=== PATIENT | male | born 1955 | race Caucasian/White ===

== ENCOUNTER 2019-12-03 19:43 | Emergency (ER) | payer MEDICARE, SELFPAY ==
[2019-12-03] VITALS (36 sets, daily range): BP systolic 141–175; BP diastolic 83–94; PULSE 92–116; RESP 1–27; TEMP 36.7; O2SAT 92–97; BMI 37.5
--- NOTE | 2019-12-03 19:47 | XR_ITS ---
WS: [id number] CHEST XRAY TECHNIQUE: Portable chest. CLINICAL INFORMATION: sob COMPARISON: October 03, 2019 FINDINGS: Heart: Cardiomegaly. Sternotomy. Aortic calcification. Lungs: Chronic emphysematous changes with interstitial thickening unchanged in appearance. Patchy inf iltrate in right lower lobe appears improved since October 03, 2019. No new infiltrates. Bones: Normal visualized bony structures. XR/XR chest 1V portable [id number] IMPRESSION: 1. No new pulmonary infiltrates. 2. Sternotomy with cardiomegaly. 3. Chronic emphysematous changes interstitial thickening. 4. Previous described right lower lobe pneumonia appears improved.
--- NOTE | 2019-12-03 19:48 | ECG_ITS ---
Measurements Intervals [place] Rate: 107 P: 66 KS: 191 QRS: 74 QRSD: 110 T: 178 QT: 353 QTc: [address] & T-WAVE ABNORMALITY Compared to ECG 10/03/2019 06:40:25 Sinus rhythm no longer present First degree AV block no longer present Intraventricular conduction delay no longer present T-wave abnormality still present Electronically Signed On 12-04-2019 20:11:31 GLOBAL SUPPLY CHAIN VICE PRESIDENT by Marifer Molina M.D. [id number] f
--- NOTE | 2019-12-03 19:49 | ED_ITS ---
Entered by Argelia Emerson, acting as scribe for Alfred Chauhan DO HPI - SOB/Dyspnea General: Chief Complaint: Shortness of Breath/Dyspnea Stated Complaint: cough/fluid bulid up sob Time Seen by Provider: 12/03/19 19:48 Source: patient and family Mode of arrival: ambulatory History of Present Illness: HPI Narrative: 64 y/o male presents to the ED with complaint of fluid build up in his chest. Pt states he had open heart sx in September. He is on liquid intake restriction and thinks he drank too much water. Pt reports increased swelling in his left leg over the past few days. Pt is a po or historian and keeps repeating, it feels the same as before . MD elicited complaint: shortness of breath and cough Onset (ago): day(s) Timing: progressively worsening Severity: moderate Exacerbating factors: coughing Associated symptoms: Deny abdominal pain, chest pain, dizziness, extremity pain, fever(s), nausea, orthopnea, palpitations, polydipsia, polyuria, syncope or vomiting Review of Systems Const: Denies: fever, chills, body aches, fatigue, malaise or night sweats Eyes: Denies: change in vision or blurry vision ENMT: Denies: throat pain, oral sores/lesions, dental pain, nasal discharge or nasal congestion Card: Reports: swelling of feet/ankles (left ) and shortness of breath on exertion; Denies: chest pain, palpitations, irregular heart rhythm, syncope, shortness of breath when lying down or leg pain with exertion Resp: Reports: shortness of breath and non-productive cough; Denies: productive cough or wheezing GI: Denies: abdominal pain, nausea, vomiting, vomiting blood, coffee grounds in vomit, difficulty swallowing, heartburn/indigestion, diarrhea, constipation, cramping, blood in stool or black tarry stool : Denies: flank pain, difficulty urinating, painful urination, urinary frequency, urinary urgency, urinary incontinence or blood in urine Musc: Denies: neck pain, back pain, extremity pain, extremity swelling, joint pain or joint swelling Skin/Breast: Denies: rash, itching or redness Neuro: Denies: headache, numbness in extremities, weakness in extremities, changes in sensation, lack of coordination, difficulty walking, frequent falls, dizziness, vertigo or confusion Psych: Denies: anxiety, depression, loss of interest, visual hallucinations, auditory hallucinations, suicidal ideation or homicidal ideation Endo: Denies: excessive urination, excessive thirst, tired all the time or cold intolerance Anirudh/Lymph: Denies: easy bruising, easy bleeding, petechiae, enlarged lymph nodes or tender lymph nodes PFSH ED PFSH: Statuses (acute, chronic, etc) shown below reflect problem list status as previously entered and may not be historically accurate Social History Smoking and tobacco status: former smoker Physical Exam Const: COMMON NORMALS: oriented x3 and alert GENERAL APPEARANCE: cooperative, comfortable and well developed NUTRITIONAL APPEARANCE: obese ORIENTATION/CONSCIOUSNESS: Yes awake, Yes oriented to person and Yes oriented to place HENMT: COMMON NORMALS: normocephalic, head/scalp atraumatic, external ears normal, EAC's normal, TM's normal bilaterally, external nose normal, moist oral mucous membranes and oropharynx normal HEAD & SCALP: normocephalic and atraumatic NOSE: external nose normal EXTERNAL EAR: Yes external ears normal EXTERNAL AUDITORY CANAL: EAC's normal TYMPANIC MEMBRANE: TM's normal bilaterally MOUTH: oral and palatal mucosa normal, lip normal and tongue normal THROAT: posterior oropharynx normal and tonsils normal Eye: COMMON NORMALS: PERRL, EOMs intact bilaterally, conjunctivae normal and no scleral icterus CONJUNCTIVA: Yes conjunctivae normal PUPIL: Yes PERRL Neck/C-Spine: COMMON NORMALS: full ROM, no lymphadenopathy, supple, no meningeal signs and thyroid normal THYROID: thyroid normal and asymmetrical Lymph: LYMPHATIC: no lymphadenopathy noted Resp: COMMON NORMALS: normal respiratory effort, no retractions, no use of accessory muscles and clear to auscultation bilaterally AUSCULTATION: clear to auscultation bilaterally Cardio: COMMON NORMALS: regular rate and regular rhythm RATE: regular rate RHYTHM: regular rhythm HEART SOUNDS: no murmurs GI: COMMON NORMALS: normal to inspection, nondistended, normoactive bowel sounds, soft to palpation and no hepatosplenomegaly AUSCULTATION: Yes normoactive bowel sounds PALPATION: Yes soft and Yes no hepatosplenomegaly : COMMON NORMALS: Yes no CVA tenderness BLADDER/KIDNEY EXAM: Yes no CVA tenderness Back/Pelvis: COMMON NORMALS: no CVA tenderness LUMBAR SPINE/LOWER BACK: Yes normal to inspection Extremity: NARRATIVE EXTREMITY EXAM: LLE swelling Neuro: COMMON NORMALS: oriented x3 SENSORIUM/ORIENTATION: Yes alert, Yes oriented to person and Yes oriented to place MENINGEAL SIGNS: Yes no meningeal signs Psych: COMMON NORMALS: speech normal SPEECH: Yes normal speech Skin: COMMON NORMALS: no rashes or lesions noted and skin turgor normal GENERAL SKIN EXAM: no rashes or lesions noted and turgor normal Course ED course: Initially patient has to be transferred we called [facility] his preference and they told us they had no beds available and were not taking any ER to ER transfers. Informed patient of this he is very adamant about being transferred. We offered him admission here for rule out and further evaluation by cardiology refuses. Called back to [facility] talk to the transfer service and the hospitalist eventually we were able to figure out a way to get him transferred to [facility] discussed with the patient. At this time he is pain-free although he does have a significant elevation in his delta troponin. Vital Signs: Vital signs: Vital Signs Temperature 98.0 F 12/03/19 19:54 Pulse Rate 82 12/04/19 02:58 Respiratory Rate 16 12/04/19 02:58 Blood Pressure 121/79 12/04/19 02:58 Pulse Oximetry 96 12/04/19 02:58 MDM - SOB/Dyspnea Lab Data: Labs: Lab Results 12/03/19 12/03/19 12/03/19 Range/Units 20:10 20:10 20:10 WBC 10.0 (4.0-10.0) 10^3/ uL RBC 3.83 L (4.1-5.3) 10^6/u L Hgb 11.2 L (11.7-16.6) g/dL Hct 35.4 L (42.0-52.0) % MCV 92.4 (80-94) fL MCH 29.2 (28.0-34.0) pg MCHC 31.6 (30.0-36.0) g/dL RDW 14.7 (12.1-15.1) % Plt Count 340 (130-400) 10^3/c mm MPV 9.7 (7.4-10.4) fL Neut % (Auto) 74.4 % Lymph % (Auto) 16.6 % Mccracken % (Auto) 8.0 % Eos % (Auto) 0.3 % Baso % (Auto) 0.3 % Neut # (Auto) 7.4 (1.8-7.7) 10^3/u L Lymph # (Auto) 1.7 (0.8-4.8) 10^3/u L Mccracken # (Auto) 0.8 (0.2-0.9) 10^3/u L Eos # (Auto) 0.0 (0.0-0.8) 10^3/u L Baso # (Auto) 0.0 (0.0-0.1) 10^3/u L Nucleated RBC % (a uto) 0 % Nucleated RBCs # 0.0 /100WBC Sodium 134 L (136-145) mmol/L Potassium 4.2 (3.5-5.1) mmol/L Chloride 96 L (98-107) mmol/L Carbon Dioxide 26 (22-29) mmol/L Anion Gap 16.2 (5-19) BUN 51 H (8-23) mg/dL Creatinine 2.8 H (0.7-1.2) mg/dL GFR Calculation 22.9 L (90-130) mL/min Glucose 331 H (74-106) mg/dL Calcium 9.4 (8.5-10.5) mg/dL Total Bilirubin 0.3 (0.15-1.2) mg/dL AST 16 (0-40) U/L ALT 9 (0-41) U/L Alkaline Phosphata se 106 (40-130) IU/L Troponin I 6 Hour (0-15) ng/L Troponin I Hi Sens Del (0-12) ng/L Troponin T Baselin e 98 H (0-15) ng/mL Troponin T 120 Min grand traverse (0-15) ng/mL Delta Troponin T (0-10) ABS# NT-Pro-B Natriuret Pep 5569 H (0-125) pg/mL Total Protein 7.8 (6.6-8.7) g/dL Albumin 3.9 (3.5-5.2) g/dL Globulin 3.9 (1.3-4.6) g/dL Influenza Type A A g (Negative) POC Influenza B Ag (Negative) 12/03/19 12/03/19 12/04/19 Range/Units 20:23 22:16 02:00 WBC (4.0-10.0) 10^3/ uL RBC (4.1-5.3) 10^6/u L Hgb (11.7-16.6) g/dL Hct (42.0-52.0) % MCV (80-94) fL MCH (28.0-34.0) pg MCHC (30.0-36.0) g/dL RDW (12.1-15.1) % Plt Count (130-400) 10^3/c mm MPV (7.4-10.4) fL Neut % (Auto) % Lymph % (Auto) % Mccracken % (Auto) % Eos % (Auto) % Baso % (Auto) % Neut # (Auto) (1.8-7.7) 10^3/u L Lymph # (Auto) (0.8-4.8) 10^3/u L Mccracken # (Auto) (0.2-0.9) 10^3/u L Eos # (Auto) (0.0-0.8) 10^3/u L Baso # (Auto) (0.0-0.1) 10^3/u L Nucleated RBC % (a uto) % Nucleated RBCs # /100WBC Sodium (136-145) mmol/L Potassium (3.5-5.1) mmol/L Chloride (98-107) mmol/L Carbon Dioxide (22-29) mmol/L Anion Gap (5-19) BUN (8-23) mg/dL Creatinine (0.7-1.2) mg/dL GFR Calculation (90-130) mL/min Glucose (74-106) mg/dL Calcium (8.5-10.5) mg/dL Total Bilirubin (0.15-1.2) mg/dL AST (0-40) U/L ALT (0-41) U/L Alkaline Phosphata se (40-130) IU/L Troponin I 6 Hour 280.6 H (0-15) ng/L Troponin I Hi Sens Del 182.6 H* (0-12) ng/L Troponin T Baselin e (0-15) ng/mL Troponin T 120 Min grand traverse 153.10 H (0-15) ng/mL Delta Troponin T 55.10 H* (0-10) ABS# NT-Pro-B Natriuret Pep (0-125) pg/mL Total Protein (6.6-8.7) g/dL Albumin (3.5-5.2) g/dL Globulin (1.3-4.6) g/dL Influenza Type A A g Negative (Negative) POC Influenza B Ag Negative (Negative) Discharge Plan Discharge Patient Disposition: Xfer Other Clinical Impression: Non-ST elevation AK (NSTEMI), Congestive heart failure, CAD (coronary artery disease) Referrals: Nida Buck MD [Primary Care Provider] - Interventions: ED Discharge Assessment Last Done: 12/04/19 02:58 Discharge Date/Time: 12/04/19 03:15 Coding Level of Care Code ED Proof Tester for Chg Fwd Exam Problem Focused The documentation recorded by the Ki mackay Ashley, accurately reflects the service I personally performed and the decisions made by Tien oneill Curtis L, DO Dec 03, 2019 19:43
--- NOTE | 2019-12-03 19:54 | ECG_ITS ---
Measurements Intervals [place] Rate: 94 P: 83 [place]: 209 QRS: 39 QRSD: 106 T: 130 QT: 373 QTc: [address] DEVIATION AND MODERATE T-WAVE ABNORMALITY, CONSIDER LATERAL ISCHEMIA [-0.1+ mV T WAVE IN I/aVL/V5/V6] Compared to ECG 10/03/2019 06:40:25 Possible ischemia now present First degree AV block no longer present Intraventricular conduction delay no longer present T-wave abnormality still present Electronically Signed On 12-04-2019 20:12:07 ASSOCIATE PROFESSOR OF PATHOLOGY by Marifer Molina M.D. [id number]
[2019-12-03 20:28] LABS: Basophils % 0.3 %; Eosinophils % 0.3 %; Hematocrit 35.4 % (42.0-52.0); Hemoglobin 11.2 g/dL (11.7-16.6); Lymphocytes # 1.7 10^3/uL (0.8-4.8); Lymphocytes % 16.6 %; Mean Corpuscular HGB Conc 31.6 g/dL (30.0-36.0); Mean Corpuscular Hemoglobin 29.2 pg (28.0-34.0); Mean Corpuscular Volume 92.4 fL (80-94); Mean Platelet Volume 9.7 fL (7.4-10.4); Monocytes # 0.8 10^3/uL (0.2-0.9); Neutrophils # 7.4 10^3/uL (1.8-7.7); Neutrophils % 74.4 %; Nucleated Red Blood Cells % 0 %; Platelet Count 340 10^3/cmm (130-400); Red Blood Count 3.83 10^6/uL (4.1-5.3); Red Cell Distribution Width 14.7 % (12.1-15.1)
[2019-12-03 20:52] LABS: Troponin(5th) Baseline 98 ng/mL (0-15)
[2019-12-03 21:00] LABS: Alanine Aminotransferase 9 U/L (0-41); Albumin Level 3.9 g/dL (3.5-5.2); Alkaline Phosphatase 106 IU/L (40-130); Anion Gap 16.2 (5-19); Aspartate Amino Transferase 16 U/L (0-40); Blood Urea Nitrogen 51 mg/dL (8-23); Calcium 9.4 mg/dL (8.5-10.5); Carbon Dioxide 26 mmol/L (22-29); Chloride 96 mmol/L (98-107); Globulin 3.9 g/dL (1.3-4.6); Glomerular Filtration Rate 22.9 mL/min (90-130); Glucose 331 mg/dL (74-106); NT Pro B Type Natriuretic Pept 5569 pg/mL (0-125); Potassium 4.2 mmol/L (3.5-5.1); Sodium 134 mmol/L (136-145); Total Bilirubin 0.3 mg/dL (0.15-1.2); Total Protein 7.8 g/dL (6.6-8.7)
[2019-12-03] MEDS: FUROsemide 10 mg/mL SDV 10mL 60 MG IVP (21:27)
[2019-12-03 21:32] LABS: Influenza A by IFA Negative (Negative); Influenza B by IFA Negative (Negative)
[2019-12-03] MEDS: nitroglycerin 1 gm/inch oint Pkt 1 INCH TOPICAL (23:03)
[2019-12-03] MEDS: heparin 5,000 unit/mL INJ 1 mL 4000 UNIT IVP (23:50)
[2019-12-04] VITALS (36 sets, daily range): BP systolic 121–161; BP diastolic 79–101; PULSE 78–96; RESP 9–29; O2SAT 90–99
[2019-12-04] MEDS: heparin drip 25,000 UNIT/500 ML PREMIX 31 UNIT IV (00:21)
--- NOTE | 2019-12-04 01:01 | ECG_ITS ---
Measurements Intervals [place] Rate: 89 P: 156 [place]: 227 QRS: 33 QRSD: 104 T: 143 QT: 390 QTc: 475 ECTOPIC ATRIAL RHYTHM WITH FIRST DEGREE AV BLOCK LATERAL MYOCARDIAL INFARCTION [40+ ms Q WAVE AND/OR ST/T ABNORMALITY IN I/ I/aVL/V5/V6], OF INDETERMINATE AGE Compared to ECG 10/03/2019 06:40:25 Ectopic atrial rhythm now present Myocardial infarct finding now present Sinus rhythm no longer present Intraventricular conduction delay no longer present T-wave abnormality no longer present Electronically Signed On 12-04-2019 20:16:26 PLOW MECHANIC by Marifer Molina M.D. [id number] f
[2019-12-04 03:06] LABS: Troponin 5 6HR 280.6 ng/L (0-15); Troponin 5 6HR Delta 182.6 ng/L (0-12)
== END 2019-12-04 03:15 | disposition other institution (70) ==
PROVIDERS: Emergency Medicine; Emergency Provider Family Medicine; Family Provider Family Medicine; PCP Family Medicine
DX: I21.3 ST elevation (STEMI) myocardial infarction of unspecified site (principal); I50.9 Heart failure, unspecified; I25.10 Atherosclerotic heart disease of native coronary artery without angina pectoris; Z87.891 Personal history of nicotine dependence; Z98.890 Other specified postprocedural states
CPT/HCPCS: 36415; 71045; 80053; 83880; 84484; 85025; 87804; 93005; 96365; 96366; 96374; 96375; 99284; 99291; J1644; J1940

== ENCOUNTER 2020-07-08 12:48 | Outpatient (CLI) | payer MEDICARE, SELFPAY ==
--- NOTE | 2020-07-08 12:56 | XR_ITS ---
WS: [id number] Pelvis and bilateral hips. HISTORY: Back pain and hip pain. Patient fell. COMPARISON: No similar studies. Moderate narrowing of the hip joints bilaterally. Cortical irregularity from loss of cartilage. Daisha ening of the junction between the femoral neck and head and protuberance consistent with CAM deformit y. Bilateral SI joint partial fusion. Osteopenia. Femoral artery and iliac artery atherosclerosis. No fractures are identified. XR/XR hip BI 3-4V wo/w pel [id number] IMPRESSION: 1. No acute fractures are identified. 2. 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
--- NOTE | 2020-07-08 12:56 | XR_ITS ---
WS: [id number] LUMBAR SPINE: 3 VIEWS TECHNIQUE: AP, lateral and L5-S1 spot. HISTORY: DORSALGIA COMPARISON: None available. Moderate LEFT convex curvature lumbar spine. Large RIGHT lateral bridging osteophytes in the upper mike mbar spine. L1 anterior compression by 20%. Degenerative changes in the disc and vertebral body endpl ates. Multilevel facet arthritis. Osteopenia. Partial fusion of the SI joints bilaterally. Extensive atherosclerosis aorta and prior cholecystectomy. XR/XR lumbar spine 2-3V* [id number] IMPRESSION: 1. Degenerative LEFT convex curvature lumbar spine. 2. Chronic appearing 20% L1 compression fracture. 3. Osteopenia. 4. Partial fusion SI joints.
== END 2020-07-08 12:49 | disposition home or self-care (01) ==
LOC: RADWPI 12:52
PROVIDERS: Family Provider Family Medicine; PCP Family Medicine; Visit Provider Family Medicine
DX: M54.9 Dorsalgia, unspecified (principal); S32.010A Wedge compression fracture of first lumbar vertebra, initial encounter for closed fracture; X58.XXXA Exposure to other specified factors, initial encounter; M85.88 Other specified disorders of bone density and structure, other site; M13.852 Other specified arthritis, left hip; M13.851 Other specified arthritis, right hip
CPT/HCPCS: 72100; 73522